=== PATIENT | male | born 1960 | race Caucasian/White ===

== ENCOUNTER 2020-04-02 07:35 | Outpatient (CLI) | payer OTHER, SELFPAY ==
[2020-04-02 08:27] LABS: Alanine Aminotransferase 12 U/L (4-50); Alkaline Phosphatase 51 U/L (38-126); Anion Gap 7.7 mmol/L (7-16); Aspartate Amino Transferase 18 U/L (17-59); Bilirubin,Total 0.4 mg/dL (0.2-1.3); Blood Urea Nitrogen 19 mg/dL (9-20); Calcium 9.2 mg/dL (8.4-10.2); Carbon Dioxide 32 mmol/L (22-30); Chloride 104 mmol/L (98-107); Cholesterol 190 mg/dL (0-200); Estimated Glomerular Filt Rate > 60; Glucose 105 mg/dL (75-110); HDL Direct 63 mg/dL; Potassium 4.7 mmol/L (3.4-5.0); Sodium 139 mmol/L (137-145); Triglycerides 42 mg/dL (<150)
[2020-04-02 08:39] LABS: LDL Cholesterol Direct 109 mg/dL
== END 2020-04-02 07:36 | disposition home or self-care (01) ==
PROVIDERS: PCP Emergency Medicine; Visit Provider Emergency Medicine
DX: E78.5 Hyperlipidemia, unspecified (principal); I10 Essential (primary) hypertension
CPT/HCPCS: 36415; 80053; 80061; 84153

== ENCOUNTER 2020-07-21 08:10 | Emergency (ER) | payer OTHER, SELFPAY ==
--- NOTE | ~2020-07-21 | XR_ITS ---
EXAMINATION: XR abdomen/kub 1V EXAM DATE: 07/21/2020 09:45 INDICATION: right flank pain , hematuria . TECHNIQUE: Frontal projection(s) of the abdomen for interpretation. There is no prior study for polo allen. FINDINGS: Difficult to identify the right UVJ stone which likely overlies the distal aspect sacrococc ygeal region. Moderate amount of colonic stool and gas. No small bowel dilation. Mild to moderate lum bar levoscoliosis. Right nephrolithiasis identified. IMPRESSION: 1. Right nephrolithiasis. 2. Can't definitively identify right UVJ stone. Reviewed, dictated and finalized at [facility]. 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
--- NOTE | ~2020-07-21 | CT_ITS ---
EXAMINATION: CT abdomen pelvis wo con EXAM DATE: 07/21/2020 09:40 INDICATION: right flank pain, hematuria . TECHNIQUE: Spiral CT of the abdomen and pelvis was performed without contrast. Axial, coronal and sag ittal images were reviewed. The dose-length product (DLP) for this examination was 216.55 mGy-cm. T he exposure was tailored according to patient size (auto mA exposure control), and iterative reconstr uction (ASIR) was used as additional dose reduction technique. Comparison is made to prior examinatio n from 07/21/2020. FINDINGS: There is a stone in the right ureterovesicular junction protruding into the bladder, measur ing 3 x 5 mm. Mild right-sided obstructive nephropathy. Additional 3 mm right mid calyceal stone. No left nephrolithiasis. The prostate is unremarkable. The bladder is unremarkable. The liver, spleen , adrenal glands and pancreas are unremarkable. Gallbladder is unremarkable. No biliary obstruction . There is no retroperitoneal or pelvic lymphadenopathy. The appendix is normal. The stomach and small bowel are unremarkable. There is expected amount of c olonic stool. No free intraperitoneal gas. The heart is normal in size. There are no pericardial or pleural effusions. The lung bases are unremarkable. There are no osteoblastic or osteolytic les ions identified. Mild to moderate lumbar levoscoliosis. IMPRESSION: 1. Right UVJ 3 x 5 mm stone, mild obstructive nephropathy. 2. Right nephrolithiasis. Reviewed, dictated and finalized at location [facility]. 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
[2020-07-21 08:16] VITALS: BP 155/88; PULSE 88; RESP 18; TEMP 36.4; O2SAT 100
--- NOTE | 2020-07-21 08:50 | ED.ABDPAIN ---
HPI - Abdominal Pain General Chief Complaint: Abdominal Pain Stated Complaint: abdominal pain Time Seen by Provider: 07/21/20 08:35 Source: patient Mode of arrival: ambulatory Limitations: no limitations History of Present Illness HPI narrative: This patient is a 60 year old male who presents for evaluation of right lower abdominal pain. He states he developed right lower abdominal pain on Thursday. This pain has been intermittent but it is becoming more severe. He states his pain now is also located in his right lower back. Today he also noticed red particulates in his urine and he has increased urinary urgency. He is unsure if he has had a fever but he reports intermittent episodes of feeling hot and sweaty . His pain currently is 5/10. Related Data Allergies Allergy/AdvReac Type Severity Reaction Status Date / Time No Known Allergies Allergy Unknown Unverified 07/21/20 08:18 Review of Systems Review of Systems: All systems reviewed & are unremarkable except as noted in HPI and below Constitutional: Constitutional: Denies chills and Reports fever(s) Respiratory: Respiratory: Denies dyspnea Gastrointestinal: Gastrointestinal: Reports abdominal pain and Reports nausea Genitourinary: Genitourinary: Reports hematuria and Reports urinary frequency Musculoskeletal: Musculoskeletal: Reports back pain PMFSH Past Medical History Medical History (Updated 07/21/20 @ 10:58 by Etelvina Hatfield MD) Hypertension Screening cholesterol level Screening PSA (prostate specific antigen) Surgical History Surgical History (Updated 07/21/20 @ 08:53 by Etelvina Hatfield MD) H/O foot surgery Family History Family History Father Family history of cardiovascular disease, Onset Age: 72 Mother Hypertension Sibling Hypertension Social History Social History Smoking status: Light tobacco smoker Alcohol intake: current Gender identity (if verbalized by the patient): Male Exam Const: General: no acute distress and alert Orientation/consciousness: patient oriented x3 HENMT: Face and sinus: face symmetric Eyes: EOM: EOMs intact bilaterally Chest: Chest palpation & inspection: normal inspection of the chest Resp: Effort & Inspection: normal respiratory effort, no retractions and no use of accessory muscles Auscultation: clear to auscultation bilaterally Cardio: Rate: regular rate Rhythm: regular rhythm Heart sounds: no murmurs GI: GI Palp: Yes Soft to palpation, Yes Tenderness to palpation present (GI) (RLQ), No Guarding due to palpation present (GI) and No Rigid due to palpation Auscultation: bowels sounds not normal Skin: General skin exam: normal color Rashes: no rashes Neuro: General: patient oriented x3 and moves all extremities Psych: Mental Status: mental status grossly normal Affect: normal affect Course Reevaluation(s) Reevaluation #1: PAtient states his pain has resolved. I discussed that he was found to have a kidney stone. He will follow up with Dr. Way Date: 07/21/20 Time: 10:41 Vital Signs Vital signs: Vital Signs Temperature 97.5 F L 07/21/20 08:16 Pulse Rate 88 07/21/20 08:16 Respiratory Rate 18 07/21/20 08:16 Blood Pressure 155/88 H 07/21/20 08:16 Pulse Oximetry 100 07/21/20 08:16 Temperature 97.5 F L 07/21/20 08:16 Pulse Rate 80 07/21/20 11:32 Respiratory Rate 12 07/21/20 11:32 Blood Pressure 134/70 07/21/20 11:32 Pulse Oximetry 99 07/21/20 11:32 MDM - Abdominal Pain Lab Data Attestation: I reviewed the patient's lab results. Result diagrams: 07/21/20 08:59 07/21/20 08:58 Labs: Lab Results 07/21/20 07/21/20 07/21/20 Range/Units 08:58 08:59 08:59 WBC 15.9 H (4.5-10.0) K/mm3 RBC 5.01 (4.6-6.20) M/mm3 Hgb 14.9 (14.0-18.0) g/dL Hct 43.7 (42.0-52.0)
[2020-07-21] MEDS: MORPHINE SULFATE (*CRX) 4 MG/ML INJ IV PUSH (08:56)
[2020-07-21] MEDS: SODIUM CHLORIDE 0.9% IV 1,000 ML 999 ML IV CONT (08:56)
[2020-07-21] MEDS: ONDANSETRON INJ 4 MG/2 ML VIAL IV PUSH (08:56)
[2020-07-21 09:10] LABS: Basophils Absolute Auto 0.1 K/mm3 (0.0-0.1); Basophils Percent Auto 0.3 % (0.2-1.2); Eosinophils Percent Auto 0.2 % (0-4.4); Hematocrit 43.7 % (42.0-52.0); Hemoglobin 14.9 g/dL (14.0-18.0); Immature Granulocyte Absolute 0.05 K/mm3 (0.00-0.031); Immature Granulocyte Percent A 0.3 % (0-0.5); Lymphocytes Absolute Auto 1.03 K/mm3 (0.9-3.2); Lymphocytes Percent Auto 6.5 % (18.3-44.2); Mean Corpuscular HGB Conc 34.1 g/dl (32-36); Mean Corpuscular Hemoglobin 29.7 pg (26-34); Mean Corpuscular Volume 87.2 fl (80-100); Mean Platelet Volume 10.1 fl (7.4-10.4); Monocytes Absolute Auto 0.7 K/mm3 (0.1-0.6); Monocytes Percent Auto 4.2 % (2.6-8.5); Neutrophils Absolute Auto 14.1 K/mm3 (1.3-6.7); Neutrophils Percent Auto 88.5 % (45.5-73.1); Platelet Count Result 182 k/mm3 (150-375); Red Blood Count 5.01 M/mm3 (4.6-6.20); Red Cell Distribution Width 13.6 % (11.5-14.5); White Blood Count 15.9 K/mm3 (4.5-10.0)
[2020-07-21 09:15] LABS: Add Urine Microscopic? YES; Appearance Urine Clear (Clear); Bilirubin Urine Negative (Negative); Blood Urine 3+ (Negative); Color Urine Yellow (Yellow); Glucose Urine UA Negative (Negative); Ketones Urine Trace mg/dL (Negative); Leukocyte Esterase Ur Negative LEU/UL (Negative); Mucus Urine Moderate /lpf; Nitrate Urine Negative (Negative); Protein Urine 2+ mg/dL (Negative); RBC Urine >75 /hpf (0-2); Specific Grav Ur 1.017 (1.001-1.035); Squamous Epithelial Cell Urine Rare /hpf (Few); Urobilinogen Urine Negative mg/dL (<2.0)
[2020-07-21 09:45] LABS: Alanine Aminotransferase 13 U/L (4-50); Albumin Level 4.2 g/dL (3.5-5.1); Alkaline Phosphatase 64 U/L (38-126); Anion Gap 10 mmol/L (8-16); Aspartate Amino Transferase 21 U/L (17-59); Bilirubin,Total 0.9 mg/dL (0.2-1.3); Blood Urea Nitrogen 18 mg/dL (9-20); Calcium 9.8 mg/dL (8.4-10.2); Carbon Dioxide 28 mmol/L (22-30); Chloride 101 mmol/L (98-107); Estimated CRCL calculation 54 ml/min; Estimated Glomerular Filt Rate > 60; Glucose 109 mg/dL (75-110); Lipase 51 U/L (23-300); Sodium 139 mmol/L (137-145)
[2020-07-21 10:15] VITALS: BP 142/70; PULSE 88; RESP 12; O2SAT 99
[2020-07-21] MEDS: TAMSULOSIN HCL 0.4 MG CAPSULE PO (10:55)
[2020-07-21 11:32] VITALS: BP 134/70; PULSE 80; RESP 12; O2SAT 99
== END 2020-07-21 11:33 | disposition home or self-care (01) ==
PROVIDERS: Emergency Provider General Practice; PCP Emergency Medicine
DX: N13.8 Other obstructive and reflux uropathy (principal); N20.2 Calculus of kidney with calculus of ureter; I10 Essential (primary) hypertension
CPT/HCPCS: 36415; 74018; 74176; 80053; 81001; 83690; 85025; 87086; 87088; 96361; 96374; 96375; 99284; A9270; J2270; J2405; J7030

== ENCOUNTER 2020-11-08 07:14 | Outpatient (CLI) | payer OTHER, SELFPAY ==
[2020-11-08 07:44] LABS: Alanine Aminotransferase 13 U/L (4-50); Albumin Level 4.2 g/dL (3.5-5.1); Alkaline Phosphatase 59 U/L (38-126); Anion Gap 5 mmol/L (8-16); Aspartate Amino Transferase 22 U/L (17-59); Bilirubin,Total 0.6 mg/dL (0.2-1.3); Blood Urea Nitrogen 17 mg/dL (9-20); Calcium 9.4 mg/dL (8.4-10.2); Carbon Dioxide 31 mmol/L (22-30); Chloride 103 mmol/L (98-107); Estimated Glomerular Filt Rate > 60; Glucose 113 mg/dL (75-110); Potassium 4.6 mmol/L (3.4-5.0); Sodium 139 mmol/L (137-145)
[2020-11-08 08:38] LABS: Prostate Specific Antigen 4.3 ng/mL (< OR = 4.0)
== END 2020-11-08 07:15 | disposition home or self-care (01) ==
PROVIDERS: PCP Emergency Medicine; Referring Provider Urology; Visit Provider Emergency Medicine
DX: R97.20 Elevated prostate specific antigen [PSA] (principal); E78.5 Hyperlipidemia, unspecified
CPT/HCPCS: 36415; 80053; 84153

== ENCOUNTER 2020-11-20 07:20 | Outpatient (CLI) | payer OTHER, SELFPAY ==
[2020-11-20 08:02] LABS: Hemoglobin A1C 5.2 % (<5.7)
[2020-11-20 08:05] LABS: Alanine Aminotransferase 13 U/L (4-50); Albumin Level 4.2 g/dL (3.5-5.1); Alkaline Phosphatase 55 U/L (38-126); Anion Gap 6 mmol/L (8-16); Aspartate Amino Transferase 20 U/L (17-59); Bilirubin,Total 0.4 mg/dL (0.2-1.3); Blood Urea Nitrogen 18 mg/dL (9-20); Calcium 9.5 mg/dL (8.4-10.2); Carbon Dioxide 30 mmol/L (22-30); Chloride 105 mmol/L (98-107); Cholesterol 209 mg/dL (0-200); Estimated Glomerular Filt Rate > 60; Glucose 123 mg/dL (75-110); HDL Direct 65 mg/dL; Potassium 4.1 mmol/L (3.4-5.0); Sodium 141 mmol/L (137-145); Triglycerides 46 mg/dL (<150)
[2020-11-20 08:17] LABS: LDL Cholesterol Direct 112 mg/dL
== END 2020-11-20 07:21 | disposition home or self-care (01) ==
PROVIDERS: PCP Emergency Medicine; Visit Provider Emergency Medicine
DX: E78.5 Hyperlipidemia, unspecified (principal); E11.9 Type 2 diabetes mellitus without complications; Z13.220 Encounter for screening for lipoid disorders
CPT/HCPCS: 36415; 80053; 80061; 83036

== ENCOUNTER 2021-04-03 08:15 | Emergency (ER) | payer OTHER, SELFPAY ==
--- NOTE | ~2021-04-03 | XR_ITS ---
XR abdomen/kub 1V DATE: 04/03/2021 09:14 INDICATION: Right flank pain. History of kidney stones. TECHNIQUE: AP projection, 2 views COMPARISON: 07/21/[address] abdomen pelvis 04/03/[address] abdomen pelvis FINDINGS: Approximately 3.5 mm calcific density overlies the expected course of the right ureter at t he lower sacroiliac level; this calcification was previously situated over the mid to lower aspect of the right kidney on 07/21/2020. No other urinary tract calcification is noted. No evidence of bowel obstruction. The psoas shadows are intact. No visceromegaly is detected. The lower lung zones appear clear. Heart size is normal. No pleural effusion is evident. Levoscoliosis and multilevel degenerative disc disease of the lumbar spine. IMPRESSION: Approximately 3-4 mm distal right ureteral calculus at the lower level of sacroiliac join ts; this calculus was located in the right kidney on 07/21/2020 Reviewed, dictated and finalized at [facility]. Reviewed, dictated and finalized at [facility]. IMPRESSION: Approximately 3-4 mm distal right ureteral calculus at the lower le jodee of sacroiliac joints; this calculus was located in the right kidney on 07/02
--- NOTE | ~2021-04-03 | CT_ITS ---
EXAMINATION: CT abdomen pelvis wo con DATE: 04/03/2021 09:05 INDICATION: Right flank pain, gross hematuria. Nausea. History of kidney stones. TECHNIQUE: Computed tomography (CT) of the abdomen and pelvis was performed without intravenous contr ast. Automated exposure control and iterative reconstruction technique were employed. Exam dose: 167 .44 mGy-cm total exam DLP. COMPARISON: 07/21/[address] abdomen pelvis FINDINGS: The lung bases are clear. Normal heart size. No pericardial or pleural effusion. The liver, gallbladder, bile ducts, pancreas, pancreatic duct and spleen are unremarkable. No right renal mass lesion or right renal calculus is evident. There is however an approximately 3.6 x 4 mm distal right ureteral calculus with mild right hydroureteronephrosis. There is prominent left hydronephrosis and left renal pelviectasis. The left ureter does not appear t o be dilated. No urinary tract calculus is identified on the left. There is moderate diffuse thickening of the urinary bladder wall likely secondary to prostate enlarge ment. There are prostate calcifications. There is mild atherosclerotic calcification but no aneurysm of the abdominal aorta. No intraperitoneal or retroperitoneal or pelvic mass lesion or adenopathy or ascites. Normal appendix. Diverticulosis of the sigmoid colon; no CT evidence of diverticulitis. No bowel obstruction, bowel wa ll thickening, pneumatosis or intraperitoneal free air is detected. Multilevel degenerative disc disease of lumbar spine, especially at L3-4, L4-5 and L5-S1. No suspicious osteolytic or osteoblastic lesions are noted. IMPRESSION: 3.6 x 4 mm distal right ureteral calculus with mild right hydroureteronephrosis Prominent left hydronephrosis and pelviectasis, without apparent obstructing calculus; urologist cons ult and possible retrograde pyelography should be considered. Normal appendix Diverticulosis of sigmoid colon; no CT evidence of diverticulitis Prostate enlargement and calcifications Reviewed, dictated and finalized at [facility]. Reviewed, dictated and finalized at [facility]. IMPRESSION: 3.6 x 4 mm distal right ureteral calculus with mild right hydroure teronephrosis Prominent left hydronephrosis and pelviectasis, without apparent obstructing ca lculus; urologist consult and possible retrograde pyelography should be conside red. Normal appendix Diverticulosis of sigmoid colon; no CT evidence of diverticulitis Prostate enlargement and calcifications
[2021-04-03 08:23] VITALS: BP 142/93; PULSE 85; RESP 15; TEMP 37.2; O2SAT 99
--- NOTE | 2021-04-03 08:27 | PC.NURSE ---
pt reports he took a flomax this morning.
[2021-04-03 08:42] LABS: Basophils Percent Auto 0.3 % (0.2-1.2); Eosinophils Absolute Auto 0.1 K/mm3 (0-0.3); Hematocrit 40.3 % (42.0-52.0); Hemoglobin 13.2 g/dL (14.0-18.0); Immature Granulocyte Absolute 0.02 K/mm3 (0.00-0.031); Immature Granulocyte Percent A 0.2 % (0-0.5); Lymphocytes Absolute Auto 1.65 K/mm3 (0.9-3.2); Mean Corpuscular HGB Conc 32.8 g/dl (32-36); Mean Corpuscular Hemoglobin 29.5 pg (26-34); Mean Platelet Volume 9.8 fl (7.4-10.4); Monocytes Absolute Auto 0.6 K/mm3 (0.1-0.6); Monocytes Percent Auto 6.8 % (2.6-8.5); Neutrophils Absolute Auto 6.3 K/mm3 (1.3-6.7); Neutrophils Percent Auto 72.7 % (45.5-73.1); Platelet Count Result 289 k/mm3 (150-375); Red Blood Count 4.48 M/mm3 (4.6-6.20); Red Cell Distribution Width 13.6 % (11.5-14.5); White Blood Count 8.7 K/mm3 (4.5-10.0)
--- NOTE | 2021-04-03 08:42 | ED.ABDPAIN ---
HPI - Abdominal Pain General Chief Complaint: Abdominal Pain Stated Complaint: flank pain Time Seen by Provider: 04/03/21 08:27 Source: patient, RN notes reviewed and old records reviewed Mode of arrival: ambulatory Limitations: no limitations History of Present Illness HPI narrative: This is a 61 year old male with history of kidney stones who presents for evaluation of right flank pain and hematuria. Patient states he developed nausea on Thursday when he was mowing the grass. He denies having chest pain or shortness of breath at that time. He notice right lower abdominal pain that he describes as cramping yesterday. He states his pain was severe last night but today it is minimal. He also noticed blood in his urine yesterday but he denies hematuria today. He also denies fever, chills, vomiting. His pain radiates to his right lower back. Related Data Allergies Allergy/AdvReac Type Severity Reaction Status Date / Time No Known Allergies Allergy Unknown Verified 04/03/21 10:25 Review of Systems Review of Systems: All systems reviewed & are unremarkable except as noted in HPI and below PMFSH Past Medical History Medical History (Updated 04/03/21 @ 10:16 by Etelvina Hatfield MD) Hypertension Kidney stones Screening cholesterol level Screening PSA (prostate specific antigen) Surgical History Surgical History H/O foot surgery Family History Family History Father Family history of cardiovascular disease, Onset Age: 72 Mother Hypertension Sibling Hypertension Social History Social History Smoking status: Light tobacco smoker Alcohol intake: current Gender identity (if verbalized by the patient): Male Exam Const: General: no acute distress and alert Orientation/consciousness: patient oriented x3 Eyes: EOM: EOMs intact bilaterally Resp: Effort & Inspection: normal respiratory effort and no retractions Auscultation: clear to auscultation bilaterally Cardio: Rate: regular rate Rhythm: regular rhythm Heart sounds: no murmurs GI: GI Palp: Yes Soft to palpation, No Tenderness to palpation present (GI) and No Guarding due to palpation present (GI) Auscultation: normal bowel sounds Back/Spine/Pelvis: Back: no CVA tenderness Skin: General skin exam: normal color Rashes: no rashes Neuro: General: patient oriented x3, moves all extremities and CN's II-XI intact bilaterally Psych: Mental Status: mental status grossly normal Affect: normal affect Course Reevaluation(s) Reevaluation #1: I have discussed Ct with patient . He understands he will need to follow up with DR. Way for evaluation of left side. He denies minimal pain so he is comfortable with discharge. Date: 04/03/21 Time: 10:14 Consultations Consultation #1: I spoke with Dr. Bernard on the phone. He states he reviewed patient's CT. He is okay with patient being discharged home at this point with flomax and pain medication. PAtient will need to follow up with Dr. Way within next week for evaluation of left UPJ obstruction. Date: 04/03/21 Time: 10:13 Vital Signs Vital signs: Vital Signs Temperature 98.9 F 04/03/21 08:23 Pulse Rate 85 04/03/21 08:23 Respiratory Rate 15 04/03/21 08:23 Blood Pressure 142/93 H 04/03/21 08:23 Pulse Oximetry 99 04/03/21 08:23 Temperature 98.9 F 04/03/21 08:23 Pulse Rate 55 L 04/03/21 10:17 Respiratory Rate 16 04/03/21 10:17 Blood Pressure 144/88 H 04/03/21 10:17 Pulse Oximetry 100 04/03/21 10:17 MDM - Abdominal Pain Medical Records Attestation: I reviewed the patient's medical records. Lab Data Attestation: I reviewed the patient's lab results. Result diagrams: 04/03/21 08:30 04/03/21 08:30 Labs: Lab Results 04/03/21 04/03/21 04/03/21
[2021-04-03 08:46] LABS: Add Urine Microscopic? YES; Appearance Urine Clear (Clear); Bacteria Urine Trace /hpf; Bilirubin Urine Negative (Negative); Blood Urine 3+ (Negative); Color Urine Straw (Yellow); Glucose Urine UA Negative (Negative); Ketones Urine Negative (Negative); Leukocyte Esterase Ur Trace LEU/UL (Negative); Mucus Urine Rare /lpf; Nitrate Urine Negative (Negative); Protein Urine Negative (Negative); RBC Urine >75 /hpf (0-2); Specific Grav Ur 1.012 (1.001-1.035); Urobilinogen Urine Negative mg/dL (<2.0)
[2021-04-03 08:51] LABS: Alanine Aminotransferase 13 U/L (4-50); Albumin Level 4.4 g/dL (3.5-5.1); Alkaline Phosphatase 60 U/L (38-126); Anion Gap 5 mmol/L (8-16); Aspartate Amino Transferase 22 U/L (17-59); Bilirubin,Total 0.3 mg/dL (0.2-1.3); Blood Urea Nitrogen 21 mg/dL (9-20); Calcium 9.9 mg/dL (8.4-10.2); Carbon Dioxide 27 mmol/L (22-30); Chloride 107 mmol/L (98-107); Estimated CRCL calculation 44 ml/min; Estimated Glomerular Filt Rate 57; Glucose 109 mg/dL (65-110); Lipase 114 U/L (23-300); Potassium 4.2 mmol/L (3.4-5.0); Sodium 139 mmol/L (137-145)
[2021-04-03] MEDS: LACTATED RINGERS 1,000 ML 999 ML IV CONT (09:15)
[2021-04-03 10:17] VITALS: BP 144/88; PULSE 55; RESP 16; O2SAT 100
== END 2021-04-03 10:38 | disposition home or self-care (01) ==
PROVIDERS: Emergency Provider General Practice; PCP Emergency Medicine
DX: N13.2 Hydronephrosis with renal and ureteral calculous obstruction (principal); I10 Essential (primary) hypertension; Z87.442 Personal history of urinary calculi; F17.200 Nicotine dependence, unspecified, uncomplicated; K57.30 Diverticulosis of large intestine without perforation or abscess without bleeding; N40.0 Benign prostatic hyperplasia without lower urinary tract symptoms
CPT/HCPCS: 36415; 74018; 74176; 80053; 81001; 83690; 85025; 87086; 96360; 99284; J7120

== ENCOUNTER 2021-04-25 13:06 | Outpatient (CLI) | payer OTHER, SELFPAY ==
--- NOTE | ~2021-04-25 | US_ITS ---
EXAMINATION: US retroperitoneal comp EXAM DATE: 04/25/2021 13:36 INDICATION: Hydronephrosis. TECHNIQUE: Multiple grayscale and Doppler images of the kidneys were obtained (by a technologist who performed the scan) and subsequently reviewed. There is no prior study for comparison. Correlation w as made with abdomen pelvis CT 04/03/2021. FINDINGS: Right kidney: There is normal contour and echogenicity. It measures 9.9 x 3.8 x 4.6 centimeters. Th ere are no focal renal lesions identified. There is no hydronephrosis. Left kidney: There is normal contour and echogenicity. It measures 11.2 x 6.0 x 6.3 centimeters. Th ere are no focal renal lesions identified. There is moderate left hydronephrosis, as seen on recent CT scan, but both ureteral jets were identified, ureter not completely obstructed. Could be from collections technician chela low-grade UPJ obstruction but consider retrograde pyelogram or CT urogram. Bladder unremarkable. Prostatomegaly. IMPRESSION: 1. Moderate left hydronephrosis. 2. Both ureteral jets confirmed patent. 3. Prostatomegaly. Reviewed, dictated and finalized at location [facility].
== END 2021-04-25 13:07 | disposition home or self-care (01) ==
PROVIDERS: PCP Emergency Medicine; Visit Provider Urology
DX: N13.30 Unspecified hydronephrosis (principal); N40.0 Benign prostatic hyperplasia without lower urinary tract symptoms
CPT/HCPCS: 76770

== ENCOUNTER 2022-05-23 07:09 | Outpatient (CLI) | payer OTHER, SELFPAY ==
[2022-05-23 07:27] LABS: Hematocrit 42.2 % (42.0-52.0); Hemoglobin 13.7 g/dL (14.0-18.0); Mean Corpuscular HGB Conc 32.5 g/dl (32-36); Mean Corpuscular Volume 92.5 fl (80-100); Mean Platelet Volume 8.9 fl (7.4-10.4); Platelet Count Result 334 k/mm3 (150-375); Red Blood Count 4.56 M/mm3 (4.6-6.20); Red Cell Distribution Width 13.8 % (11.5-14.5); White Blood Count 8.5 K/mm3 (4.5-10.0)
[2022-05-23 07:59] LABS: Alanine Aminotransferase 12 U/L (6-50); Albumin Level 4.1 g/dL (3.5-5.1); Alkaline Phosphatase 58 U/L (38-126); Anion Gap 6 mmol/L (8-16); Aspartate Amino Transferase 16 U/L (17-59); Bilirubin,Total 0.5 mg/dL (0.2-1.3); Blood Urea Nitrogen 26 mg/dL (9-20); Calcium 9.2 mg/dL (8.4-10.2); Carbon Dioxide 28 mmol/L (22-30); Chloride 104 mmol/L (98-107); Cholesterol 180 mg/dL (0-200); Estimated Glomerular Filt Rate 44; Glucose 105 mg/dL (65-110); HDL Direct 69 mg/dL; Potassium 4.6 mmol/L (3.4-5.0); Sodium 138 mmol/L (137-145); Triglycerides 48 mg/dL (<150)
[2022-05-23 08:10] LABS: LDL Cholesterol Direct 92 mg/dL
[2022-05-23 08:25] LABS: Thyroid Stimulating Hormone 0.503 uIU/mL (0.465-4.680)
[2022-05-23 08:41] LABS: Prostate Specific Antigen 4.9 ng/mL (< OR = 4.0)
[2022-05-27 00:10] LABS: Testosterone Free 53.2 pg/mL (46.0-224.0); Testosterone Total 675 ng/dL (250-1100)
[2022-05-28 13:46] LABS: Vitamin D 1,25 (OH)2 Total 32 pg/mL (18-72); Vitamin D2 1,25 (OH)2 <8 pg/mL; Vitamin D3 1,25 (OH)2 32 pg/mL
== END 2022-05-23 07:10 | disposition home or self-care (01) ==
LOC: ANHLAB 07:12
PROVIDERS: PCP Emergency Medicine; Visit Provider Emergency Medicine
DX: I10 Essential (primary) hypertension (principal)
CPT/HCPCS: 36415; 80053; 80061; 82652; 84153; 84402; 84403; 84443; 85027; G0103